=== PATIENT | female | born 1990 | race Caucasian/White ===

== ENCOUNTER → 2017-11-14 15:49 | Outpatient (CLI) | payer OTHER, MEDICAID, SELFPAY | PROVIDERS: PCP Family Medicine; Visit Provider Internal Medicine | DX: R30.9 Painful micturition, unspecified (principal); R35.0 Frequency of micturition; N39.0 Urinary tract infection, site not specified | CPT/HCPCS: 87086 ==

== ENCOUNTER 2019-04-03 18:36 | Emergency (ER) | payer OTHER, MEDICAID, SELFPAY ==
[2019-04-03 19:11] VITALS: BP 121/78; PULSE 64; RESP 21; TEMP 36.9; O2SAT 100
--- NOTE | 2019-04-03 19:11 | ED_ITS ---
HPI - URI/Sore Throat General Chief Complaint: Upper Respiratory Symptoms Stated Complaint: treated for bronch/pneum 14days little improvement Time Seen by Provider: 04/03/19 18:38 Source: patient Mode of arrival: Ambulatory Limitations: no limitations History of Present Illness HPI Narrative: 28-year-old female whom smoke cigarettes and occasionally vapors presents with her significant other in the chief complaint of ongoing upper respiratory symptoms for the past few weeks. She has had a low-grade temperature as well as a hacking cough. She denies any significant difficulty breathing. She denies any dizziness, weakness or lightheadedness. She denies any nausea, vomiting or diarrhea. She had been seen at the walk-in clinic and was placed on a Z-Rich and had small amount of improvement but symptoms have since returned. MD Complaint: cough Onset (ago): week(s) Duration: constant Severity: moderate Relieving factors: nothing Exacerbating factors: nothing Description of mucous: clear Associated symptoms: chills and cough Treatments prior to arrival: antibiotics Related Data Home Medications Medication Instructions Recorded Confirmed levonorgestrel [Mirena] 52 mg INTRAU #0 01/04/17 03/23/19 Previous Rx's Medication Instructions Recorded bupropion HCl [Wellbutrin SR] 150 mg PO BID #60 tab 03/28/17 alprazolam 0 PO Q8HP PRN #20 tab 04/18/17 cholecalciferol (vitamin D3) 50,000 unit PO QWEEK #8 cap 04/19/17 albuterol sulfate 90 mcg/actuation 2 puff INHALATION Q4-6H PRN #8 gram 03/23/19 aerosol inhaler azithromycin 500 mg tablet See Rx Instructions PO .COMPLEX #6 03/23/19 tab inhalational spacing device #1 each 03/23/19 doxycycline monohydrate 100 mg PO BID 10 Days #20 cap 04/03/19 Allergies Allergy/AdvReac Type Severity Reaction Status Date / Time sulfamethoxazole AdvReac Severe headache, Verified 03/23/19 09:11 [From BACTRIM] conjunctivitis trimethoprim [From BACTRIM] AdvReac Severe headache, Verified 03/23/19 09:11 conjunctivitis Review of Systems Constitutional Constitutional: Denies chills, Denies fatigue, Denies fever(s), Denies frequent falls, Denies lethargy and Denies weakness Eyes Eyes: Denies change in vision, Denies eye discharge, Denies irritation and Denies loss of vision ENT Ears, Nose, Mouth, and Throat: Denies change in voice, Denies dizziness, Denies neck pain, Denies sore throat and Denies throat swelling Cardiovascular Cardiovascular: Denies chest pain, Denies irregular heart rhythm, Denies lightheadedness, Denies palpitations, Denies dyspnea, Denies dyspnea on exertion and Denies orthopnea Respiratory Respiratory: Reports cough, Reports pain with cough, Denies dyspnea, Denies dyspnea on exertion and Denies wheezing Gastrointestinal Gastrointestinal: Denies abdominal pain, Denies change in bowel habits, Denies diarrhea, Denies nausea and Denies vomiting Genitourinary Genitourinary: Denies hematuria, Denies flank pain, Denies urinary incontinence and Denies urinary urgency Musculoskeletal Musculoskeletal: Denies back pain, Denies muscle weakness, Denies neck pain, Denies numbness and Denies tingling Integumentary/Breasts Skin/Breast: Denies pruritus, Denies erythema, Denies rash and Denies wounds Neurologic Neurologic: Denies behavioral changes, Denies confusion, Denies dizziness, Denies frequent falls, Denies loss of vision, Denies numbness, Denies tingling and Denies weakness Psychiatric Psychiatric: Denies anxiety, Denies behavioral changes, Denies confusion, Denies depression, Denies homicidal ideation and Denies suicidal ideation Endocrine Endocrine: Denies fatigue, Denies flushing and Denies palpitations Hematologic/Lymphatic Hematologic/Lymphatic: Denies easy bruising Allergic/Immunologic Allergic/Immunologic: Denies urticaria, Denies throat swelling and Denies wheezing Patient History Medical History Adopted (Resolved) Ankle pain (Chronic ~2004) Anxiety (Chronic ~2004) Chicken pox (Resolved 1996) Chronic headaches (Chronic ~2004) Depression (Chronic 2009) Eczema (Chronic 2006) Normal Papanicolaou smear (Resolved) Surgical History Anesthesia (Resolved) 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 Well- nourished, well-developed patient, in mild distress. HEAD: Atraumatic. Normocephalic. EYES: Pupils equal round and reactive. Extraocular motions intact. No scleral icterus. No injection or drainage. ENT: Nose without bleeding, purulent drainage. Throat without erythema, tonsillar hypertrophy or exudate. Airway patent. NECK: Trachea midline. Non tender CARDIOVASCULAR: Regular rate and rhythm without murmurs, gallops, or rubs. RESPIRATORY: Clear to auscultation. Breath sounds equal bilaterally. No wheezes, rales, or rhonchi. GASTROINTESTINAL: Abdomen soft, non-tender, nondistended. EXTREMITIES: No edema or joint tenderness. BACK: Nontender without deformity or crepitance. No flank tenderness. NEURO: AOx3. SKIN: No rash or erythema of visible areas Initial Vital Signs Initial Vital Signs: Vital Signs Temperature 98.4 F 04/03/19 19:11 Pulse Rate 64 04/03/19 19:11 Respiratory Rate 21 04/03/19 19:11 Blood Pressure 121/78 04/03/19 19:11 Pulse Oximetry 100 04/03/19 19:11 Course Orders Ordered: ED Orders 04/03/19 19:19 XR chest 2V Stat Vital Signs Vital signs: Vital Signs - 8 hr 04/03/19 19:11 Temperature 98.4 F Pulse Rate 64 Respiratory Rate 21 Blood Pressure 121/78 Pulse Oximetry 100 MDM - URI/Sore Throat Imaging Data Chest x-ray: Radiologist's impression: Lety Fongtao Bowen 28 F [address] [address] XRay Report Signed Patient: Estrellita Fong LMR#: [id number] : 1990Acct:[id number] Age/Sex: 28 / FDate of Service: 04/03/19 Loc: ED Accession Number: [id number] Procedure: XR chest 2V Ordering Provider: Salvador Louis D.O. PROCEDURE: XR CHEST 2V INDICATIONS: SOB, cough, fever TECHNIQUE: 2 views of the chest were acquired. COMPARISON: [facility] , CHEST 2 VIEW, 02/19/2011, 22:36. FINDINGS: Surgical changes and devices: Surgical clips in the upper abdomen. Lungs and pleura: Lungs are clear. No pleural effusions or pneumothorax. Mediastinum: Mediastinal contours are normal. Heart size is normal. Bones and chest wall: No suspicious bony abnormalities. Soft tissues appear unremarkable. IMPRESSION: No acute disease. Dictated by: Jordi Vo M.D. on 04/03/2019 at 19:50 Approved by: Jordi Vo M.D. on 04/03/2019 at 19:51 [facility] Narrative Medical decision making narrative: 28-year-old female nontoxic, nonseptic but with 2 weeks of upper respiratory complaint. Chest x-ray is unremarkable. Physical exam is very reassuring. Pneumonia considered but thought less likely given chest x-ray. We did spend a fair amount of time discussing smoking and of a peeing and it is likely linked to her symptoms. She reports some improvement with azithromycin, she is at high risk for atypical pneumonia and therefore was put on doxycycline. She has had questions answered to her apparent satisfaction and has been given extensive return precautions Discharge Plan Departure Patient Disposition: Home Clinical Impression: Atypical pneumonia Discharge Date/Time: 04/03/19 19:41 Instructions: DI for Atypical Pneumonia Activity Restrictions/Additional Instructions: *You have been diagnosed with [atypical pneumonia] *What to do: *Take medications as directed: Your antibiotic has been electronically transmitted to the [facility] in [place] at your request *Follow up with your primary care provider in 2-3 days, call for an appointment. Let them know you were seen in the Emergency Department and that we ask that you be seen in follow up *Return to ER if you should have any new, worsening or concerning symptoms Prescriptions: New doxycycline monohydrate 100 mg capsule 100 mg PO BID 10 Days Qty: 20 RF: 0 No Action azithromycin 500 mg tablet See Rx Instructions PO .COMPLEX Qty: 6 RF: 0 albuterol sulfate 90 mcg/actuation HFA aerosol inhaler 2 puff INHALATION Q4-6H PRN (Reason: shortness of breath or wheezing) Qty: 8 RF: 0 (DME) Aerochamber MV Spacer See Rx Instructions .ROUTE .MEDSUPPLY Qty: 1 RF: 0 levonorgestrel [Mirena] 1 EACH intrauterine device 52 mg INTRAU Qty: 0 RF: 0 bupropion HCl [Wellbutrin SR] 150 MG tablet extended release 12 hr 150 mg PO BID Qty: 60 RF: 1 alprazolam 0.25 MG tablet 0 PO Q8HP PRNQty: 20 RF: 1 cholecalciferol (vitamin D3) 50,000 UNIT capsule 50,000 unit PO QWEEK Qty: 8 RF: 0 Referrals: Esther Singh DO [Primary Care Provider] - Stand Alone Forms: Work Release Note
--- NOTE | 2019-04-03 19:19 | DI.RAD.S_ITS ---
PROCEDURE: XR CHEST 2V INDICATIONS: SOB, cough, fever TECHNIQUE: 2 views of the chest were acquired. COMPARISON: [facility], , CHEST 2 VIEW, 02/19/2011, 22:36. FINDINGS: Surgical changes and devices: Surgical clips in the upper abdomen. Lungs and pleura: Lungs are clear. No pleural effusions or pneumothorax. Mediastinum: Mediastinal contours are normal. Heart size is normal. Bones and chest wall: No suspicious bony abnormalities. Soft tissues appear unremarkable. IMPRESSION: No acute disease. Dictated by: Jordi Vo M.D. on 04/03/2019 at 19:50 Approved by: Jordi Vo M.D. on 04/03/2019 at 19:51
== END 2019-04-03 19:41 | disposition home or self-care (01) ==
PROVIDERS: Emergency Provider Emergency Medicine; PCP Family Medicine
DX: J18.9 Pneumonia, unspecified organism (principal); Z72.0 Tobacco use
CPT/HCPCS: 71046; 99282; 99283

== ENCOUNTER → 2019-05-17 10:41 | Outpatient (CLI) | payer OTHER, MEDICAID, SELFPAY ==
[2019-05-17 11:59] LABS: Add Manual Diff / Slide Review NO; Basophils Absolute Auto 100 /uL (0-100); Eosinophils Absolute Auto 400 /uL (0-450); Eosinophils Percent Auto 4.7 % (2-4); Hematocrit 37.7 % (36-46); Hemoglobin 12.8 g/dL (12.0-16.0); Lymphocytes Absolute Auto 3000 /uL (1100-4500); Lymphocytes Percent Auto 39.6 % (25-40); Mean Corpuscular Hemoglobin 29.2 PG (26-34); Mean Corpuscular Volume 85.9 fL (80-100); Monocytes Absolute Auto 600 /uL (0-900); Monocytes Percent Auto 8.4 % (3-14); Neutrophils Absolute Auto 3600 /uL (1500-7000); Neutrophils Percent Auto 46.3 % (50-75); Platelet Count 301 X10^3/uL (150-400); Red Blood Cell Count 4.39 X10^6/uL (4.0-5.2); Red Cell Distribution Width 13.3 % (11.6-14.8); White Blood Cell Count 7.7 X10^3/uL (4.5-11.0)
[2019-05-17 12:25] LABS: Erythrocyte Sedimentation Rate 5 MM/HR (0-20)
[2019-05-17 12:26] LABS: Alanine Aminotransferase 10 IU/L (<35); Albumin 4.5 g/dL (3.5-5.0); Albumin Globulin Ratio 1.6 (1.0-2.8); Alkaline Phosphatase 50 U/L (38-126); Aspartate Aminotransferase 19 IU/L (14-36); Blood Urea Nitrogen 11 mg/dL (7-17); C-Reactive Protein Quant < 0.5 mg/dL (<1.0); Calcium 9.6 mg/dL (8.4-10.2); Carbon Dioxide 29 mmol/L (22-32); Chloride 101 mmol/L (98-107); Estimated Glomerular Filt Rate > 60.0 mL/min (>60); Globulin 2.8 g/dL (1.7-4.1); Glucose 91 mg/dL (70-100); HEMOLYSIS < 15 (0-50); Potassium 3.4 mmol/L (3.4-5.1); Sodium 140 mmol/L (137-145); Total Protein 7.3 g/dL (6.3-8.2)
[2019-05-17 13:01] LABS: TSH w/ Reflex to FT4 2.72 uIU/mL (0.47-4.68)
[2019-05-17 13:11] LABS: Vitamin B12 346 pg/mL (239-931)
[2019-05-17 14:27] LABS: Vitamin D 25 Hydroxy (D3) 34.1 ng/mL (30.0-100.0)
== END ==
PROVIDERS: PCP Family Medicine; Visit Provider Family Medicine
DX: R53.83 Other fatigue (principal); M25.50 Pain in unspecified joint; M81.0 Age-related osteoporosis without current pathological fracture
CPT/HCPCS: 36415; 80053; 82306; 82607; 84443; 85025; 85651; 86140

== ENCOUNTER 2019-05-19 21:15 | Emergency (ER) | payer OTHER, MEDICAID, SELFPAY ==
[2019-05-19 21:34] VITALS: BP 126/70; PULSE 56; RESP 22; TEMP 36.7; O2SAT 100; BMI 26.6
--- NOTE | 2019-05-19 22:05 | ED.SYNCOPE ---
HPI - Syncope General Chief Complaint: Syncope Stated Complaint: Passing out Time Seen by Provider: 05/19/19 22:04 Source: family Mode of arrival: Ambulatory Limitations: no limitations History of Present Illness HPI narrative: This is a 28-year-old female who comes to the emergency department with complaint of passing out. Patient states that this started around 8:00 pm. this evening. Her significant other describes it as sort of passing out or nodding off while they were driving in the car together. Patient describes that she hurts all over. She denies fevers but states she always feels chilled. She describes this as all the time. She denies nasal congestion. She denies vision changes. She denies chest pain or shortness of breath she states she feels a little nauseated but that this is sort of constant. She denies abdominal pain. She states she had urine symptoms 2 weeks ago with urgency and dysuria but none currently. She had loose stool yesterday. She describes some numbness and tingling in her toes and fingers. She states that she has a history of hyper pulse glycemia, gastric bypass and cholecystectomy. She does use THC but states she quit using a couple weeks ago when she had bronchitis. She states that her breathing has improved since then. She denies tobacco, she denies alcohol or other illicit. She is accompanied by her significant other who states she had 1 other episode like this past. Patient was tearful in the room but denies depression, suicidal thoughts or any mood disorders. Related Data Home Medications Medication Instructions Recorded Confirmed levonorgestrel [Mirena] 52 mg INTRAU #0 01/04/17 05/17/19 Previous Rx's Medication Instructions Recorded albuterol sulfate 90 mcg/actuation 2 puff INHALATION Q4-6H PRN #8 gram 03/23/19 aerosol inhaler inhalational spacing device #1 each 03/23/19 vits 80-iron 38 1 cap PO DAILY #90 cap 05/17/19 mg-mfolate 1 mg-dss 25 mg-dha 225 mg capsule Allergies Allergy/AdvReac Type Severity Reaction Status Date / Time sulfamethoxazole AdvReac Severe headache, Verified 05/19/19 21:34 [From BACTRIM] conjunctivitis trimethoprim [From BACTRIM] AdvReac Severe headache, Verified 05/19/19 21:34 conjunctivitis Review of Systems Review of Systems ROS Unobtainable: All systems reviewed & are unremarkable except as noted in HPI and below Patient History Medical History Adopted (Resolved) Ankle pain (Chronic ~2004) Anxiety (Chronic ~2004) Chicken pox (Resolved 1996) Chronic headaches (Chronic ~2004) Depression (Chronic 2009) Eczema (Chronic 2006) Normal Papanicolaou smear (Resolved) Surgical History Anesthesia (Resolved) 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 Patient initially does not answer questions but when I pull down her covers she opens her eyes and answers them easily. HEENT: Atraumatic, pupils are equal round reactive to light, extraocular movements are intact, nares are clear, TMs are clear with no fluid, there is no conjunctival pallor. Throat is clear without any exudates, erythema, tonsillar enlargement or uvular deviation, no meningeal signs. HEART: Regular rate and rhythm without murmur, clicks, rubs. No carotid bruits, pulses are equal in upper and lower extremities LUNGS:Lungs clear to auscultation, no wheezes, rales, crackles, chest moves symmetrically ABD:bowel sounds normal, soft, non-tender, no guarding, rebound, rigidity, no masses noted, no hepatosplenomegaly :No CVA tenderness MSCL: Non-tender, no muscle atrophy, muscles strength 5/5 upper and lower extremities, full range of motion, normal gait NEURO:CN 2-12 intact, sensation normal SKIN: No rash. No petechiae or skin color changes. Initial Vital Signs Initial Vital Signs: Vital Signs Temperature 98.1 F 05/19/19 21:34 Pulse Rate 56 L 05/19/19 21:34 Respiratory Rate 22 05/19/19 21:34 Blood Pressure 126/70 05/19/19 21:34 Pulse Oximetry 100 05/19/19 21:34 Course Orders Ordered: ED Orders 05/19/19 21:51 EKG-12 Lead Stat 05/19/19 21:55 Complete Blood Count AUTO DIFF Stat Comprehensive Metabolic Panel Stat Ethanol (ETOH) Stat Lipase Stat Test Serum,Qual Stat Troponin & CK Cardiac Panel Stat 05/19/19 22:09 XR chest 1V Stat 05/19/19 22:40 UA Complete [Urinalysis and Microscopic] Stat Urine Drug Screen, Rapid Stat Discontinued Medications Sodium Chloride (Normal Saline 0.9%) 1,000 mls @ 1,000 mls/hr IV BOLUS ONE Stop: 05/19/19 23:05 Last Infusion: 05/19/19 23:45 Dose: 0 mls/hr Documented by: Admin: 05/19/19 22:14 Dose: 1,000 mls/hr Documented by: KOBY Vital Signs Vital signs: Vital Signs - 8 hr 05/19/19 23:58 Pulse Rate 67 Respiratory Rate 14 Blood Pressure [Left Arm] 122/80 Pulse Oximetry 99 MDM - Syncope Lab Data Attestation: I reviewed the patient's lab results. Result diagrams: 05/19/19 21:55 05/19/19 21:55 Labs: Lab Results 05/19/19 05/19/19 05/19/19 Range/Units 21:55 21:55 21:55 WBC 5.9 (4.5-11.0) X10^3/uL RBC 4.49 (4.0-5.2) X10^6/uL Hgb 13.0 (12.0-16.0) g/dL Hct 38.7 (36-46) % MCV 86.0 (80-100) fL MCH 28.9 (26-34) PG MCHC 33.6 (30-36) % RDW 13.3 (11.6-14.8) % Plt Count 287 (150-400) X10^3/uL Neut % (Auto) 55.0 (50-75) % Lymph % (Auto) 29.2 (25-40) % [place] % (Auto) 9.9 (3-14) % Eos % (Auto) 4.4 H (2-4) % Baso % (Auto) 1.5 (0-2) % Neut # (Auto) 3200 (8620-1277) /uL Lymph # (Auto) 1700 (1590-8004) /uL [place] # (Auto) 600 (0-900) /uL Eos # (Auto) 300 (0-450) /uL Baso # (Auto) 100 (0-100) /uL Sodium 138 (137-145) mmol/L Potassium 3.9 (3.4-5.1) mmol/L Chloride 102 (98-107) mmol/L Carbon Dioxide 30 (22-32) mmol/L BUN 10 (7-17) mg/dL Creatinine 0.60 (0.52-1.04) mg/dL Estimated GFR > 60.0 (>60) mL/min BUN/Creatinine Ratio 16.7 (6-22) Glucose 103 H (70-100) mg/dL Calcium 9.4 (8.4-10.2) mg/dL Total Bilirubin 1.3 (0.2-1.3) mg/dL AST 20 (14-36) IU/L ALT 11 (<35) IU/L Alkaline Phosphatase 42 (38-126) U/L Total Creatine Kinase 34 (30-135) U/L CK-MB (CK-2) TNP CK-MB (CK-2) Rel Index TNP Troponin I < 0.012 (0.01-0.034) ng/mL Total Protein 7.2 (6.3-8.2) g/dL Albumin 4.3 (3.5-5.0) g/dL Globulin 2.9 (1.7-4.1) g/dL Albumin/Globulin Ratio 1.5 (1.0-2.8) Lipase (23-300) U/L Serum , Qual Negative (Negative) Urine Color Urine Appearance Urine pH (4.5-8.0) Ur Specific [place] (1.000-1.035) Urine Protein (Negative) Urine Glucose (UA) (Negative) g/dL Urine Ketones (NEGATIVE) Urine Occult Blood (Negative) Urine Nitrate (Negative) Urine Bilirubin (NEGATIVE) Urine Urobilinogen (0.2) E.U./dL Ur Leukocyte Esterase (NEGATIVE) Urine RBC (0-5/HPF) Urine WBC (0-5/HPF) Ur Squamous Epith Cells (0-5/HPF) Urine Bacteria (None) Ur Culture Indicated? Micro UA Comment U Morph 300 ng/mL cutoff (Negative) Ur Oxycodone Screen (Negative) Urine Methadone Screen (Negative) Ur Barbiturates Screen (Negative) U Tricyclic Antidepress (Negative) Ur Phencyclidine Scrn (Negative) Ur Amphetamines Screen (Negative) U Methamphetamines Scrn (Negative) Ur MDMA Scrn (Ecstasy) (Negative) U Benzodiazepines Scrn (Negative) Urine Cocaine Screen (Negative) U Marijuana (THC) Screen (Negative) Ethyl Alcohol ( - 10) mg/dL 05/19/19 05/19/19 05/19/19 Range/Units 21:55 21:55 22:40 WBC (4.5-11.0) X10^3/uL RBC (4.0-5.2) X10^6/uL Hgb (12.0-16.0) g/dL Hct (36-46) % MCV (80-100) fL MCH (26-34) PG MCHC (30-36) % RDW (11.6-14.8) % Plt Count (150-400) X10^3/uL Neut % (Auto) (50-75) % Lymph % (Auto) (25-40) % [place] % (Auto) (3-14) % Eos % (Auto) (2-4) % Baso % (Auto) (0-2) % Neut # (Auto) (7430-7034) /uL Lymph # (Auto) (9846-9762) /uL [place] # (Auto) (0-900) /uL Eos # (Auto) (0-450) /uL Baso # (Auto) (0-100) /uL Sodium (137-145) mmol/L Potassium (3.4-5.1) mmol/L Chloride (98-107) mmol/L Carbon Dioxide (22-32) mmol/L BUN (7-17) mg/dL Creatinine (0.52-1.04) mg/dL Estimated GFR (>60) mL/min BUN/Creatinine Ratio (6-22) Glucose (70-100) mg/dL Calcium (8.4-10.2) mg/dL Total Bilirubin (0.2-1.3) mg/dL AST (14-36) IU/L ALT (<35) IU/L Alkaline Phosphatase (38-126) U/L Total Creatine Kinase (30-135) U/L CK-MB (CK-2) CK-MB (CK-2) Rel Index Troponin I (0.01-0.034) ng/mL Total Protein (6.3-8.2) g/dL Albumin (3.5-5.0) g/dL Globulin (1.7-4.1) g/dL Albumin/Globulin Ratio (1.0-2.8) Lipase 57 (23-300) U/L Serum , Qual (Negative) Urine Color Urine Appearance Urine pH (4.5-8.0) Ur Specific [place] (1.000-1.035) Urine Protein (Negative) Urine Glucose (UA) (Negative) g/dL Urine Ketones (NEGATIVE) Urine Occult Blood (Negative) Urine Nitrate (Negative) Urine Bilirubin (NEGATIVE) Urine Urobilinogen (0.2) E.U./dL Ur Leukocyte Esterase (NEGATIVE) Urine RBC (0-5/HPF) Urine WBC (0-5/HPF) Ur Squamous Epith Cells (0-5/HPF) Urine Bacteria (None) Ur Culture Indicated? Micro UA Comment U Morph 300 ng/mL cutoff Negative (Negative) Ur Oxycodone Screen Negative (Negative) Urine Methadone Screen Negative (Negative) Ur Barbiturates Screen Negative (Negative) U Tricyclic Antidepress Negative (Negative) Ur Phencyclidine Scrn Negative (Negative) Ur Amphetamines Screen Negative (Negative) U Methamphetamines Scrn Negative (Negative) Ur MDMA Scrn (Ecstasy) Negative (Negative) U Benzodiazepines Scrn Negative (Negative) Urine Cocaine Screen Negative (Negative) U Marijuana (THC) Screen Positive H (Negative) Ethyl Alcohol < 10 ( - 10) mg/dL 05/19/19 Range/Units 22:40 WBC (4.5-11.0) X10^3/uL RBC (4.0-5.2) X10^6/uL Hgb (12.0-16.0) g/dL Hct (36-46) % MCV (80-100) fL MCH (26-34) PG MCHC (30-36) % RDW (11.6-14.8) % Plt Count (150-400) X10^3/uL Neut % (Auto) (50-75) % Lymph % (Auto) (25-40) % [place] % (Auto) (3-14) % Eos % (Auto) (2-4) % Baso % (Auto) (0-2) % Neut # (Auto) (9885-3964) /uL Lymph # (Auto) (5111-6466) /uL [place] # (Auto) (0-900) /uL Eos # (Auto) (0-450) /uL Baso # (Auto) (0-100) /uL Sodium (137-145) mmol/L Potassium (3.4-5.1) mmol/L Chloride (98-107) mmol/L Carbon Dioxide (22-32) mmol/L BUN (7-17) mg/dL Creatinine (0.52-1.04) mg/dL Estimated GFR (>60) mL/min BUN/Creatinine Ratio (6-22) Glucose (70-100) mg/dL Calcium (8.4-10.2) mg/dL Total Bilirubin (0.2-1.3) mg/dL AST (14-36) IU/L ALT (<35) IU/L Alkaline Phosphatase (38-126) U/L Total Creatine Kinase (30-135) U/L CK-MB (CK-2) CK-MB (CK-2) Rel Index Troponin I (0.01-0.034) ng/mL Total Protein (6.3-8.2) g/dL Albumin (3.5-5.0) g/dL Globulin (1.7-4.1) g/dL Albumin/Globulin Ratio (1.0-2.8) Lipase (23-300) U/L Serum , Qual (Negative) Urine Color Yellow Urine Appearance Clear Urine pH 7.5 (4.5-8.0) Ur Specific [place] <=1.005 (1.000-1.035) Urine Protein Negative (Negative) Urine Glucose (UA) Negative (Negative) g/dL Urine Ketones Negative (NEGATIVE) Urine Occult Blood Negative (Negative) Urine Nitrate Negative (Negative) Urine Bilirubin Negative (NEGATIVE) Urine Urobilinogen 0.2 (0.2) E.U./dL Ur Leukocyte Esterase Negative (NEGATIVE) Urine RBC None seen (0-5/HPF) Urine WBC None seen (0-5/HPF) Ur Squamous Epith Cells 0-1 /hpf (0-5/HPF) Urine Bacteria None seen (None) Ur Culture Indicated? Cult not indicated Micro UA Comment Microscopic normal U Morph 300 ng/mL cutoff (Negative) Ur Oxycodone Screen (Negative) Urine Methadone Screen (Negative) Ur Barbiturates Screen (Negative) U Tricyclic Antidepress (Negative) Ur Phencyclidine Scrn (Negative) Ur Amphetamines Screen (Negative) U Methamphetamines Scrn (Negative) Ur MDMA Scrn (Ecstasy) (Negative) U Benzodiazepines Scrn (Negative) Urine Cocaine Screen (Negative) U Marijuana (THC) Screen (Negative) Ethyl Alcohol ( - 10) mg/dL Imaging Data Chest x-ray: My impression: nap, cardiomegaly, no pneumothorax, no infiltrate. No fracture. No free air under the diaphragm. Normal mediastinum. ECG Data Attestation: I personally reviewed and interpreted this ECG as follows: Interpretation: Sinus bradycardia rate of 57 P are 137 QRS 100 and QTC of 399. No ST elevation or depression noted. MDM Narrative Medical decision making narrative: Patient comes in with nodding off or passing-out although she is easily arousable and able to ambulate without issue and answer all questions throughout evaluation for nursing and myself labs, chest x-ray and EKG as well as urinalysis don't show any major abnormalities other than patient is positive for THC which she did mention she has used up until recently. Plan for patient to DC home and follow-up with primary care, patient has appointment on Tuesday with Dr. Singh. Patient is feeling a little better after fluids, she able to ambulate to the bathroom prior to this. She states she feels maybe a little foggy still but like to return home. Discharge Plan Departure Patient Disposition: Home Clinical Impression: Syncope Discharge Date/Time: 05/20/19 00:06 Instructions: DI for Syncope in Adults (Fainting) Activity Restrictions/Additional Instructions: Follow-up with primary care in the next several days, call for an appointment if you do not already have one scheduled. Make sure you're drinking plenty of fluids. Return to the emergency department for fevers greater 100.4 F, sudden severe headaches, new vision changes, new chest pain or shortness of breath, persistent vomiting, black or bloody stools or other new or concerning symptoms. Prescriptions: No Action albuterol sulfate 90 mcg/actuation HFA aerosol inhaler 2 puff INHALATION Q4-6H PRN (Reason: shortness of breath or wheezing) Qty: 8 RF: 0 (DME) Aerochamber MV Spacer See Rx Instructions .ROUTE .MEDSUPPLY Qty: 1 RF: 0 levonorgestrel [Mirena] 1 EACH intrauterine device 52 mg INTRAU Qty: 0 RF: 0 PNV [id number] 38 mg iron-1 mg -25 mg-225 mg capsule 1 cap PO DAILY Qty: 90 RF: 3 Referrals: Esther Singh DO [Primary Care Provider] -
[2019-05-19 22:09] LABS: Add Manual Diff / Slide Review NO; Basophils Absolute Auto 100 /uL (0-100); Basophils Percent Auto 1.5 % (0-2); Eosinophils Absolute Auto 300 /uL (0-450); Eosinophils Percent Auto 4.4 % (2-4); Hematocrit 38.7 % (36-46); Lymphocytes Absolute Auto 1700 /uL (1100-4500); Lymphocytes Percent Auto 29.2 % (25-40); Mean Corpuscular HGB Conc 33.6 % (30-36); Mean Corpuscular Hemoglobin 28.9 PG (26-34); Monocytes Absolute Auto 600 /uL (0-900); Monocytes Percent Auto 9.9 % (3-14); Neutrophils Absolute Auto 3200 /uL (1500-7000); Platelet Count 287 X10^3/uL (150-400); Red Blood Cell Count 4.49 X10^6/uL (4.0-5.2); Red Cell Distribution Width 13.3 % (11.6-14.8); White Blood Cell Count 5.9 X10^3/uL (4.5-11.0)
--- NOTE | 2019-05-19 22:09 | DI.RAD.S_ITS ---
PROCEDURE: XR CHEST 1V INDICATIONS: syncope TECHNIQUE: One view of the chest was acquired. COMPARISON: [facility], CR, XR CHEST 2V, 04/03/2019, 19:17. FINDINGS: Surgical changes and devices: None. Lungs and pleura: Lungs are clear. No pleural effusions or pneumothorax. Mediastinum: Mediastinal contours appear normal. Heart size is normal. Bones and chest wall: No suspicious bony lesions. Overlying soft tissues appear unremarkable. IMPRESSION: 1. No acute cardiopulmonary disease. Dictated by: James Sun M.D. on 05/20/2019 at 8:26 Approved by: James Sun M.D. on 05/20/2019 at 8:27
[2019-05-19] MEDS: SODIUM CHLORIDE 0.9% 1,000 ML 1000 ML IV (22:14)
[2019-05-19 22:17] LABS: Alanine Aminotransferase 11 IU/L (<35); Albumin 4.3 g/dL (3.5-5.0); Albumin Globulin Ratio 1.5 (1.0-2.8); Alkaline Phosphatase 42 U/L (38-126); Aspartate Aminotransferase 20 IU/L (14-36); BUN Creatinine Ratio 16.7 (6-22); Bilirubin Total 1.3 mg/dL (0.2-1.3); Blood Urea Nitrogen 10 mg/dL (7-17); Calcium 9.4 mg/dL (8.4-10.2); Carbon Dioxide 30 mmol/L (22-32); Chloride 102 mmol/L (98-107); Creatine Kinase 34 U/L (30-135); Estimated Glomerular Filt Rate > 60.0 mL/min (>60); Globulin 2.9 g/dL (1.7-4.1); Glucose 103 mg/dL (70-100); HEMOLYSIS 31 (0-50); Lipase 57 U/L (23-300); Potassium 3.9 mmol/L (3.4-5.1); Sodium 138 mmol/L (137-145); Total Protein 7.2 g/dL (6.3-8.2)
[2019-05-19 22:21] LABS: Pregnancy Test Serum,Qual Negative (Negative)
[2019-05-19 22:28] LABS: Troponin I < 0.012 ng/mL (0.01-0.034)
--- NOTE | 2019-05-19 22:44 | PC.NURSE ---
Multiple episodes of passing out reported by sig other in the car ride on the way in.
--- NOTE | 2019-05-19 22:49 | PC.NURSE ---
patient reports passing out in the car ride here. denies sob, chest pain, fever, chills n/v/d. Denies recent drug use. states I dont know why I am like this. Patient ambulated self to bathroom and back pushing IV pole with no difficulties.
[2019-05-19 22:51] LABS: Ethanol (ETOH) < 10 mg/dL
[2019-05-19 22:53] LABS: UR Morphine/Opiate cutoff 300 Negative (Negative); Ur Creatinine Normal (Normal); Ur Specific Gravity Normal (Normal); Urine Amphetamines Negative (Negative); Urine Barbiturates Negative (Negative); Urine Benzodiazepines Negative (Negative); Urine Cocaine Negative (Negative); Urine MDMA Negative (Negative); Urine Methadone Negative (Negative); Urine Methamphetamines Negative (Negative); Urine Oxycodone Negative (Negative); Urine Phencyclidine Negative (Negative); Urine Tetrahydrocannabinol Positive (Negative); Urine Tricyclic Antidepressant Negative (Negative); Urine pH Normal (Normal)
[2019-05-19 22:56] LABS: Bacteria Urine None Seen; RBC Urine None Seen (0-5/HPF); WBC Urine None Seen (0-5/HPF)
[2019-05-19 22:58] LABS: Appearance Urine UA CLEAR; Bilirubin Urine UA NEGATIVE (NEGATIVE); Color Urine UA YELLOW; Glucose Urine UA NEGATIVE (Negative); Ketones Urine UA NEGATIVE (NEGATIVE); Leukocyte Esterase Urine UA NEGATIVE (NEGATIVE); Nitrite Urine UA NEGATIVE (Negative); Occult Blood Urine UA NEGATIVE (Negative); Protein Urine UA NEGATIVE (Negative); Specific Gravity Urine UA <=1.005 (1.000-1.035); Urobilinogen Urine UA 0.2 E.U./dL (0.2)
[2019-05-19 23:00] LABS: pH Urine UA 7.5 (4.5-8.0)
[2019-05-19 23:04] LABS: Culture Indicated Urine Cult Not Indicated; Squamous Epithelial Cell Urine 0-1 /HPF (0-5/HPF); Urine Comments Microscopic Normal
[2019-05-19 23:58] VITALS: BP 122/80; PULSE 67; RESP 14; O2SAT 99
== END 2019-05-20 00:06 | disposition home or self-care (01) ==
PROVIDERS: Emergency Provider Emergency Medicine; PCP Family Medicine
DX: R55 Syncope and collapse (principal); R00.1 Bradycardia, unspecified
CPT/HCPCS: 36415; 71045; 80053; 80305; 80320; 81001; 82550; 83690; 84484; 84703; 85025; 93005; 93010; 96360; 96361; 99284; 99285

== ENCOUNTER → 2019-08-06 17:09 | Outpatient (CLI) | payer OTHER, MEDICAID, SELFPAY ==
[2019-08-06 17:51] LABS: Rheumatoid Factor < 8.6 IU/mL (<12.0)
[2019-08-06 17:55] LABS: C-Reactive Protein Quant < 0.5 mg/dL (<1.0)
[2019-08-06 18:09] LABS: Erythrocyte Sedimentation Rate 5 MM/HR (0-20)
[2019-08-09 08:30] LABS: ANA Screen, IFA NEGATIVE (NEGATIVE)
[2019-08-09 12:09] LABS: CCP Antibody (IgG) < 16 Units (< 20)
== END ==
PROVIDERS: PCP Family Medicine; Referring Provider Family Medicine; Visit Provider Family Medicine
DX: M79.10 Myalgia, unspecified site (principal)
CPT/HCPCS: 36415; 85651; 86038; 86140; 86200; 86430

== ENCOUNTER 2019-10-16 13:09 | Emergency (ER) | payer OTHER, MEDICAID, SELFPAY ==
--- NOTE | 2019-10-16 13:20 | PC.NURSE ---
Pt state the dryer knocked the bleach off the counter and it splashed in both her eyes and on her child's clothes. pt has redness in eyes, taken to eye wash station and flushed for 10 minutes with copius amounts of water.
--- NOTE | 2019-10-16 13:23 | ED_ITS ---
HPI - Eye Problem <KERWIN Neal - Last Filed: 10/16/19 21:18> General Chief complaint: Eye Problems Stated complaint: Got Bleach in right eye Time Seen by Provider: 10/16/19 13:21 History of Present Illness HPI Narrative: 29yo female presents emergency department complaining of getting bleach last in her eye. She states she was reaching on a shelf and the bleach fell, she states the cap was not on tight and which got in both of her eyes. Denies wearing any contacts. She denies any changes to vision such as blurred vision, double vision, or extreme pain. She states she washed her eyes out with water for 10 minutes at home. She had her eyes irrigated for 10 minutes in triage. She denies any other medical history. Has seen an eye doctor in the past year without any concerns. Patient denies any other concerns such as fevers, chills, nausea, vomiting, diarrhea, chest pain, shortness of breath, or any other concerns. Related Data Home Medications Medication Instructions Recorded Confirmed levonorgestrel [Mirena] 52 mg INTRAU #0 01/04/17 08/06/19 Previous Rx's Medication Instructions Recorded multivit no.39-iron 38 1 cap PO DAILY #90 cap 05/17/19 mg-mthfolate 1 mg-dss 25 mg-dha 225 mg capsule albuterol sulfate 90 mcg/actuation 2 puff INHALATION Q4-6H PRN #8 gram 08/06/19 aerosol inhaler amitriptyline 10 mg tablet 10 mg PO BEDTIME #30 tab 08/06/19 inhalational spacing device #1 each 08/06/19 Allergies Allergy/AdvReac Type Severity Reaction Status Date / Time sulfamethoxazole AdvReac Severe headache, Verified 08/06/19 16:31 [From BACTRIM] conjunctivitis trimethoprim [From BACTRIM] AdvReac Severe headache, Verified 08/06/19 16:31 conjunctivitis Review of Systems <KERWIN Neal - Last Filed: 10/16/19 21:18> Review of Systems Narrative: REVIEW OF SYSTEMS: GENERAL: Denies fever or chills. HENT: No head trauma, hearing loss, or sore throat. EYES: Complains of eye irritation and chemical exposure, see HPI. NECK/LYMPHATIC: No lymphadenopathy. CARDIOVASCULAR: No chest pain. RESPIRATORY: No cough or shortness of breath. INTEGUMENTARY: No rash, lesions, or pruritus. 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 Answers questions promptly and appropriately. Vital signs noted. HENT: Normocephalic, atraumatic. Hearing intact. Oral mucosa oropharynx without erythema. Nares patent without erythema. EYES: PERRLA, EOMIs, medial conjunctiva slightly erythematous to bilateral eyes, no discharge. PH of 6 bilaterally after 10 minutes of irrigation emergency department in 10 minutes of irrigation at home. Patient then performed an additional 10 minutes of irrigation post pH testing. Bilateral VA 20/40. CARDIOVASCULAR: Regular rate. RESPIRATORY: Normal respiratory rate, trachea midline, airway patent. No stridor, nasal flaring or accessory muscle use. MUSCULOSKELETAL: Normal gait and coordination. Equal tone and mass bilaterally. SKIN: Warm, dry, soft, appropriate color for ethnicity. NEURO: Alert and Oriented X 3. Good coordination. PSYCH: Appropriate affect and mood. Course <KERWIN Neal - Last Filed: 10/16/19 21:18> Course Course Narrative: Patient irrigated eyes for over 20 minutes in the ED. Irrigated in triage, 10 minutes after evaluation the patient. Orders Ordered: Discontinued Medications Proparacaine HCl (Parcaine 0.5% Ophth Melyssa) 1 drops EYE-BOTH NOW ONE Stop: 10/16/19 13:29 Last Admin: 10/16/19 13:35 Dose: 1 drop Documented by: ROWDY Consultations Consultation #1: Patient staffed with Dr. Hamilton discussed plan of care. <Norm Hamilton MD - Last Filed: 10/26/19 07:41> Orders Ordered: Discontinued Medications Proparacaine HCl (Parcaine 0.5% Ophth Melyssa) 1 drops EYE-BOTH NOW ONE Stop: 10/16/19 13:29 Last Admin: 10/16/19 13:35 Dose: 1 drop Documented by: ROWDY MDM - Eye Problem <KERWIN Neal - Last Filed: 10/16/19 21:18> Medical Records Attestation: I reviewed the patient's medical records. Lab Data Attestation: I reviewed the patient's lab results. MDM Narrative Medical decision making narrative: This is a 29 year female presents emergency department for bleach chemical exposure to her eyes. Patient's eyes were irrigated for total of 30 minutes (10 minutes at home, 20 minutes in the ED). No vision changes, normal pH. Patient was encouraged to follow up with service captain. Due to normal pH, no concern for continued brown. Concern for severe damage due to lack of vision changes, or continued pain. Return precautions given for new or worsening symptoms. Discharge Plan Departure Patient Disposition: Home Clinical Impression: Accidental exposure to bleach Chemical injury of eye Qualifiers: Laterality: unspecified laterality Discharge Date/Time: 10/16/19 13:54 Instructions: DI for Chemical Eye Burn Activity Restrictions/Additional Instructions: Thank you for entrusting me with your care today. As discussed, the pH in your eye is normal. Your eyes may be red and irritated for a few days. Do not put any Visine in your eye (or any eyedrops that states ?redness relief). You may use an eye saline solution or lubricating drops for your eye to help with irritation. I recommend following up with your eye doctor in the next week for further evaluation. Return emergency department for any new or worsening symptoms such as pus in urine, swelling, severe pain, vision changes, or any other concerns. Prescriptions: No Action levonorgestrel [Mirena] 1 EACH intrauterine device 52 mg INTRAU Qty: 0 RF: 0 [id number] 38 mg iron-1 mg -25 mg-225 mg capsule 1 cap PO DAILY Qty: 90 RF: 3 amitriptyline 10 mg tablet 10 mg PO BEDTIME Qty: 30 RF: 0 albuterol sulfate 90 mcg/actuation HFA aerosol inhaler 2 puff INHALATION Q4-6H PRN (Reason: shortness of breath or wheezing) Qty: 8 RF: 0 (DME) Aerochamber MV Spacer See Rx Instructions .ROUTE .MEDSUPPLY Qty: 1 RF: 0 Referrals: Esther Singh DO [Primary Care Provider] -
[2019-10-16] MEDS: PROPARACAINE 0.5% OPHTH SOL 1 DROPS EYE-BOTH (13:35)
== END 2019-10-16 13:54 | disposition home or self-care (01) ==
PROVIDERS: Emergency Provider Nurse Practitioner; PCP Family Medicine
DX: T26.90XA Corrosion of unspecified eye and adnexa, part unspecified, initial encounter (principal); Z77.098 Contact with and (suspected) exposure to other hazardous, chiefly nonmedicinal, chemicals
CPT/HCPCS: 99281

== ENCOUNTER → 2019-12-04 14:16 | Outpatient (CLI) | payer OTHER, MEDICAID, SELFPAY | PROVIDERS: PCP Family Medicine; Visit Provider Nurse Practitioner Family | DX: N39.0 Urinary tract infection, site not specified (principal) | CPT/HCPCS: 87077; 87086; 87186 ==

== ENCOUNTER → 2019-12-21 15:52 | Outpatient (CLI) | payer OTHER, MEDICAID, SELFPAY ==
[2019-12-21 16:38] LABS: Appearance Urine UA SL CLOUDY; Bilirubin Urine UA NEGATIVE (NEGATIVE); Color Urine UA YELLOW; Glucose Urine UA NEGATIVE (Negative); Ketones Urine UA 1+ (NEGATIVE); Leukocyte Esterase Urine UA NEGATIVE (NEGATIVE); Nitrite Urine UA NEGATIVE (Negative); Occult Blood Urine UA TRACE-INTACT (Negative); Protein Urine UA NEGATIVE (Negative); Urobilinogen Urine UA 0.2 E.U./dL (0.2)
[2019-12-21 17:00] LABS: pH Urine UA 6.5 (4.5-8.0)
[2019-12-21 17:04] LABS: Bacteria Urine Many (>30); Mucus Urine 3+ (Negative); RBC Urine 0-1/HPF (0-5/HPF); Squamous Epithelial Cell Urine 1-5 /HPF (0-5/HPF); WBC Urine 0-1/HPF (0-5/HPF)
[2019-12-21 17:05] LABS: Culture Indicated Urine Cult Not Indicated
== END ==
PROVIDERS: PCP Family Medicine; Referring Provider Nurse Practitioner Family; Visit Provider Nurse Practitioner Family
DX: R80.9 Proteinuria, unspecified (principal)
CPT/HCPCS: 81001

== ENCOUNTER 2020-01-22 12:09 | Emergency (ER) | payer OTHER, MEDICAID, SELFPAY ==
[2020-01-22 12:25] VITALS: BP 147/78; PULSE 68; RESP 14; TEMP 37.1; O2SAT 99
--- NOTE | 2020-01-22 12:55 | ED_ITS ---
HPI - Abdominal Pain <KERWIN Neal - Last Filed: 01/22/20 20:26> General Chief Complaint: Abdominal Pain Stated Complaint: STOMACH PAIN Time Seen by Provider: 01/22/20 12:31 Source: patient Mode of arrival: Ambulatory Limitations: no limitations History of Present Illness HPI narrative: 29yo female without any significant medical problems, presents to the emergency department complaining of intermittent sharp stabbing epigastric pain for the past month. She states she has had increased stress over the past few weeks which has now resolved. However, she states this pain started around that time. She describes it as a sharp stabbing pain that lasts for few minutes to a few days. She denies any aggravating or alleviating factors including eating, moving, palpation of the area, or physical activity. Patient denies taking anything for this pain. She denies any history of ulcers or is dyspepsia. Patient denies any pain with urination, , chest pain, shortness of breath, fevers, chills, or any other concerns. Related Data Home Medications Medication Instructions Recorded Confirmed levonorgestrel [Mirena] 52 mg INTRAU #0 01/04/17 12/04/19 Previous Rx's Medication Instructions Recorded multivit no.39-iron 38 1 cap PO DAILY #90 cap 05/17/19 mg-mthfolate 1 mg-dss 25 mg-dha 225 mg capsule albuterol sulfate 90 mcg/actuation 2 puff INHALATION Q4-6H PRN #8 gram 08/06/19 aerosol inhaler amitriptyline 10 mg tablet 10 mg PO BEDTIME #30 tab 08/06/19 inhalational spacing device #1 each 08/06/19 omeprazole 20 mg PO DAILY 14 Days #14 cap 01/22/20 Allergies Allergy/AdvReac Type Severity Reaction Status Date / Time sulfamethoxazole AdvReac Severe headache, Verified 01/22/20 12:35 [From BACTRIM] conjunctivitis trimethoprim [From BACTRIM] AdvReac Severe headache, Verified 01/22/20 12:35 conjunctivitis Review of Systems <KERWIN Neal - Last Filed: 01/22/20 20:26> Review of Systems Narrative: REVIEW OF SYSTEMS: GENERAL: Denies fever, chills, malaise, or wt. loss. HENT: No head trauma, sore throat, or dysphagia. EYES: No loss of vision, double vision, eye pain, or irritation. CARDIOVASCULAR: No chest pain, palpitations, or orthopnea. RESPIRATORY: No shortness of breath or cough. GASTROINTESTINAL: Complains of epigastric abdominal pain, see HPI GENITOURINARY: No flank pain, urinary incontinence, hesitancy, frequency, or dysuria. No vaginal discharge or dyspareunia. Denies concerns for STIs MUSCULOSKELETAL: No pain, weakness, or trauma. INTEGUMENTARY: No rash, lesions, or pruritus. NEURO: No numbness, tingling, memory loss, confusion, or headaches. PSYCH: No behavior or mood changes. 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 Answers questions promptly and appropriately. Vital signs noted. HENT: Normocephalic, atraumatic. Hearing intact. Oral mucosa is pink and moist. EYES: Conjunctiva pink, sclera white, no periorbital swelling. CARDIOVASCULAR: S1 and S2 sounds normal. Regular rate and rhythm, no murmurs, clicks, or bruits. No pedal edema. RESPIRATORY: Normal respiratory rate, trachea midline, airway patent. No stridor, nasal flaring or accessory muscle use. Lungs are clear in all gonzalez without wheeze, rhonchi, or crackles. GASTROINTESTINAL: Bowel sounds normoactive. Abdomen is soft, mild epigastric tenderness. No organomegaly, no palpable masses. GENITALURINARY: No flank tenderness. MUSCULOSKELETAL: Normal gait and coordination. Equal tone and mass bilaterally. EXTREMITIES: CMS intact, no pedal edema. SKIN: Warm, dry, soft, appropriate color for ethnicity. No lesions, rashes, or wounds to visualized areas. NEURO: Alert and Oriented X 3. Good coordination. No ataxia, or sensory deficits, or cognitive issues. PSYCH: Appropriate affect and mood. <Yeyo Lemon MD - Last Filed: 01/23/20 13:19> Initial Vital Signs Initial Vital Signs: Vital Signs Temperature 98.8 F 01/22/20 12:25 Pulse Rate 68 01/22/20 12:25 Respiratory Rate 14 01/22/20 12:25 Blood Pressure 147/78 H 01/22/20 12:25 Pulse Oximetry 99 01/22/20 12:25 Course <KERWIN Neal - Last Filed: 01/22/20 20:26> Course Course Narrative: Patient reports essentially complete pain relief after administration of GI cocktail. Orders Ordered: Discontinued Medications Al Hydrox/Mg Hydrox/Simethicone 20 ml/ Lidocaine HCl 15 ml 0 ml PO NOW ONE Stop: 01/22/20 12:53 Last Admin: 01/22/20 13:03 Dose: 20 ml Documented by: ELODIA Vital Signs Vital signs: Vital Signs - 8 hr 01/22/20 12:25 01/22/20 13:43 Temperature 98.8 F Pulse Rate 68 70 Respiratory Rate 14 15 Blood Pressure 147/78 H 113/68 Pulse Oximetry 99 98 <Yeyo Lemon MD - Last Filed: 01/23/20 13:19> Orders Ordered: Discontinued Medications Al Hydrox/Mg Hydrox/Simethicone 20 ml/ Lidocaine HCl 15 ml 0 ml PO NOW ONE Stop: 01/22/20 12:53 Last Admin: 01/22/20 13:03 Dose: 20 ml Documented by: ELODIA Vital Signs Vital signs: Vital Signs - 8 hr 01/22/20 12:25 01/22/20 13:43 Temperature 98.8 F Pulse Rate 68 70 Respiratory Rate 14 15 Blood Pressure 147/78 H 113/68 Pulse Oximetry 99 98 MDM - Abdominal Pain <Rachel ThompsonKERWIN - Last Filed: 01/22/20 20:26> Medical Records Attestation: I reviewed the patient's medical records. Lab Data Attestation: I reviewed the patient's lab results. Point of care testing: Point of Care Testing Test Results Negative Urine Dip Bedside Urine Glucose Negative Bedside Urine Bilirubin + 1 Bedside Urine Ketone - Negative Urine Specific [place] 1.030 Bedside Urine Occult Blood - Negative Bedside Urine pH 6.0 Bedside Urine Protein +/- 15 Bedside Urine Urobilinogen +/- 1mg Bedside Urine Nitrite - Negative Bedside Urine Leukocytes - Negative Esterase MDM Narrative Medical decision making narrative: History and examination consistent with dyspepsia versus GERD versus stomach ulcer given epigastric tenderness and resolution of pain after GI cocktail, as well as description of history. Less concern for bleeding also given lack of vomiting for blood in stools. Less concern for acute abdominal etiology given fairly unremarkable exam, no right upper quadrant tenderness, pain not worse after eating, no vomiting, no tachycardia, patient is afebrile. Patient was encouraged to use an acid and follow up with her primary care pro vider in the next few weeks. Strict return precautions given for new or worsening symptoms. Patient agreed to plan of care verbalized understanding. <Yeyo Lemon MD - Last Filed: 01/23/20 13:19> Lab Data Point of care testing: Point of Care Testing Test Results Negative Urine Dip Bedside Urine Glucose Negative Bedside Urine Bilirubin + 1 Bedside Urine Ketone - Negative Urine Specific [place] 1.030 Bedside Urine Occult Blood - Negative Bedside Urine pH 6.0 Bedside Urine Protein +/- 15 Bedside Urine Urobilinogen +/- 1mg Bedside Urine Nitrite - Negative Bedside Urine Leukocytes - Negative Esterase Discharge Plan Departure Patient Disposition: Home Clinical Impression: Dyspepsia Discharge Date/Time: 01/22/20 13:44 Instructions: DI for Dyspepsia Activity Restrictions/Additional Instructions: Thank you for entrusting me with your care today. As discussed, I suspect your pain is most likely caused by dyspepsia or the inflammation lining of your stomach. Please take omeprazole 20 mg every morning for the next 2 weeks to help decrease stomach acid and decreased stomach inflammation. This medication was sent to [facility] Decreased amount of spicy foods, acidic foods, and things like coffee and cho colate for the next 2 weeks. Please follow-up with your primary care provider in 2 weeks for further evaluation if symptoms continue. Return to the emergency department for any new or worsening symptoms such as vomiting blood, high fevers, or any other concerns. Prescriptions: New omeprazole 20 mg capsule,delayed release(DR/EC) 20 mg PO DAILY 14 Days Qty: 14 RF: 0 No Action levonorgestrel [Mirena] 1 EACH intrauterine device 52 mg INTRAU Qty: 0 RF: 0 [id number] 38 mg iron-1 mg -25 mg-225 mg capsule 1 cap PO DAILY Qty: 90 RF: 3 amitriptyline 10 mg tablet 10 mg PO BEDTIME Qty: 30 RF: 0 albuterol sulfate 90 mcg/actuation HFA aerosol inhaler 2 puff INHALATION Q4-6H PRN (Reason: shortness of breath or wheezing) Qty: 8 RF: 0 (DME) Aerochamber MV Spacer See Rx Instructions .ROUTE .MEDSUPPLY Qty: 1 RF: 0 Referrals: Esther Singh DO [Primary Care Provider] - <Yeyo Lemon MD - Last Filed: 01/23/20 13:19> [facility] I was immediately available in the de partment for consultation. This documentation has been reviewed and I agree with assessment and plan. Supervised by Yeyo Lemon MD
[2020-01-22] MEDS: MAG HYDROX/ALUMINUM/SIMETH SUS 20 ML, LIDOCAINE VISCOUS 2% 15 ML PO (13:03)
[2020-01-22 13:43] VITALS: BP 113/68; PULSE 70; RESP 15; O2SAT 98
== END 2020-01-22 13:44 | disposition home or self-care (01) ==
PROVIDERS: Emergency Provider Nurse Practitioner; PCP Family Medicine
DX: R10.13 Epigastric pain (principal)
CPT/HCPCS: 81003; 81025; 99283

== ENCOUNTER → 2020-05-15 14:48 | Outpatient (CLI) | payer OTHER, MEDICAID, SELFPAY ==
[2020-05-15 15:14] LABS: Monotest Negative (Negative)
== END ==
PROVIDERS: PCP Family Medicine; Referring Provider Physician Assistant; Visit Provider Physician Assistant
DX: J02.9 Acute pharyngitis, unspecified (principal)
CPT/HCPCS: 36415; 86318; 87070